=== PATIENT | female | born 2000 | race African-American/Black ===

== ENCOUNTER 2024-03-05 10:36 | Emergency (ER) | payer BC, OTHER ==
[~2024-03-05] VITALS: Ht 175.3 cm; Wt 81.6 kg
[2024-03-05 10:44] VITALS: O2SAT 99
[2024-03-05] MEDS: CYCLOBENZAPRINE 10MG TABLET PO ONE (11:28)
[2024-03-05] MEDS: LIDOCAINE 5% PATCH TOP SCH (11:30)
[2024-03-05] MEDS ORDERED: CYCL5TAB MT (11:30)
[2024-03-05] MEDS ORDERED: LIDO700A15 TP (11:30)
[2024-03-05 11:58] VITALS: BP 104/75; PULSE 72; RESP 18; TEMP 97.6
== END 2024-03-05 12:00 | disposition home or self-care (01) ==
LOC: ER 10:36
DX: S39.012A Strain of muscle, fascia and tendon of lower back, initial encounter (principal); V89.2XXA Person injured in unspecified motor-vehicle accident, traffic, initial encounter; Y93.89 Activity, other specified; Y92.89 Other specified places as the place of occurrence of the external cause; Y99.8 Other external cause status
CPT/HCPCS: 81025; 99283